=== PATIENT | female | born 1975 | race Caucasian/White ===

== ENCOUNTER 2018-04-01 07:06 | Emergency (ER) | payer BC ==
--- OUTSIDE RECORDS SUMMARY | 2018-04-01 07:10 | XMS REPORT ---
:1975 External Reference #:[id number] Author Organization [facility] Address [address] [place] [address] Phone [phone] Care Team Providers Name Role Phone Arnaldo Bean MD Care Team Information Clam Shucker Unavailable Arnaldo Bean MD Primary Care Physician Unavailable Payers Type Date Identification Numbers Payment Provider Subscriber Commercial Effective: Policy Number: BC/BS Of ELA Radha Colon 2013 [id number] Group Number: [id number] [address] [id number] PayID: [id number] [place] [address] Problems Date Description Provider Status Onset: 08/04/2013 Obesity Darek Palacios M.D. Active Onset: 08/04/2013 FH: Skin disease Darek Palacios M.D. Active Onset: 11/15/2013 Benign essential hypertension Darek Palacios M.D. Active Onset: 10/22/2011 Acute upper respiratory infection Darek Palacios M.D. Resolved Resolved: 04/24/2016 Family History Date Family Member(s) Problem(s) Comments Father Hypercholesterolemia Father Hypertension Father Diabetes Mellitus, II Father Prostate Cancer Mother Hypercholesterolemia Mother Congentital Heart Defect Mother Hypertension First Brother Skin Cancer Melanoma First Sister Soft Tissue Sarcoma Social History Type Date Description Comments General was at [facility] Cigarette Use Current Cigarette Smoker ETOH Use Social Alcohol Smoking Patient is a current smoker, 2 per day, plus e-cig smokes every day Exercise Type/Frequency Exercises regularly Current Allergies, Adverse Reactions, Alerts Date Description Reaction Status Severity Comments 12/26/2008 Sulfa redness/itchiness on face active Medications Medication Date Status Form Strength Qnty SIG Indications Ordering Provider Naproxen 03/05/ Active Tablets 500mg 60tabs 1 by mouth N94.3 Kyara 2017 twice a Leonardo, day with [employer]IST[employer] food No Active 02/18/ Hx Unknown Medications 2017 - 2017 Aviane 11/19/ Hx Tablets 0.1-20mg-m 90tabs 1 by mouth Z30.9 Hortensia 2017 - cg every day Carmel, 02/18/ M.DSera 2017 No Active 06/10/ Hx Unknown Medications 2013 - 2016 Losartan 11/15/ Hx Tablets 25mg 30tabs 1 po qd 401.1 Darek Martino Potassium 2013 - Angelita Palacios 2013 No Active 03/05/ Hx Unknown Medications 2012 - 2013 Augmentin 10/22/ Hx Tablets 500-125mg 20tabs one tab po 465.9 Darek Martino 2011 - bid for Angelita Palacios 03/05/ days 2012 Loratadine-D 10/22/ Hx Tablets 10-240mg 10tabs 1 po qd 465.9 Darek Martino 24HR 2011 - ER 24HR Angelita Palacios 2012 Augmentin 05/10/ Hx Tablets 500-125mg 20tabs 1 po bid x 461.9 Valarie 2010 - 10 days Lilia, 10/22/ Afnp-C 2011 Cipro 05/22/ Hx Tablets 250mg 6tabs 1 po bid 791.9 Darek Martino 2008 - Angelita Palacios 2010 Chantix 04/12/ Hx starter 305.1 Darek Martino Starter Pack 2008 - pack as Angelita Palacios 2010 then two refills on regular dose Chantix 12/26/ Hx Misc 60unit one po bid 305.1 Darek Martino 2008 - s Angelita Palacios 2010 Immunizations CPT Code Status Date Vaccine Lot # [id number] Given 08/04/2013 Tdap Tetanus, W Pertussis [id number] Given 04/12/2009 Meningococcal Conjugate Vaccine,Serogroups For [id number] Intramuscular Use Vital Signs Date Vital Result Comment 03/05/2018 BP Systolic 152 mmHg BP Diastolic 88 mmHg Heart Rate 90 /min Body Temperature 97.9 F Height 61.5 inches 5'1.50" Weight 215.00 lb BMI (Body Mass Index) 40.0 kg/m2 02/18/2018 BP Systolic 150 mmHg BP Diastolic 90 mmHg Heart Rate 76 /min Body Temperature 99.0 F Respiratory Rate 16 /min Height 61.5 inches 5'1.50" Weight 213.00 lb BMI (Body Mass Index) 39.6 kg/m2 11/19/2016 BP Systolic 120 mmHg BP Diastolic 70 mmHg Heart Rate 96 /min Body Temperature 98.1 F Respiratory Rate 18 /min Height 61.5 inches 5'1.50" Weight 211.00 lb BMI (Body Mass Index) 39.2 kg/m2 04/24/2016 BP Systolic 136 mmHg BP Diastolic 86 mmHg Heart Rate 68 /min Body Temperature 98.2 F Respiratory Rate 16 /min Height 61.5 inches 5'1.50" Weight 203.00 lb BMI (Body Mass Index) 37.7 kg/m2 12/09/2014 BP Systolic 138 mmHg BP Diastolic 84 mmHg Heart Rate 78 /min Body Temperature 97.5 F Respiratory Rate 18 /min Height 62.25 inches 5'2.25" Weight 185.00 lb BMI (Body Mass Index) 33.6 kg/m2 06/10/2014 BP Systolic 102 mmHg BP Diastolic 80 mmHg Heart Rate 72 /min Body Temperature 97.8 F Height 62.25 inches 5'2.25" Weight 177.12 lb BMI (Body Mass Index) 32.1 kg/m2 12/06/2013 BP Systolic 122 mmHg BP Diastolic 80 mmHg Heart Rate 72 /min Body Temperature 98.5 F Respiratory Rate 18 /min Height 62.25 inches 5'2.25" Weight 190.00 lb BMI (Body Mass Index) 34.5 kg/m2 11/15/2013 BP Systolic 150 mmHg BP Diastolic 90 mmHg Heart Rate 76 /min Body Temperature 98.8 F Respiratory Rate 18 /min Height 62.25 inches 5'2.25" Weight 193.00 lb BMI (Body Mass Index) 35.0 kg/m2 08/04/2013 BP Systolic 150 mmHg BP Diastolic 98 mmHg Heart Rate 96 /min Body Temperature 98.5 F Height 62.25 inches 5'2.25" Weight 206.50 lb BMI (Body Mass Index) 37.5 kg/m2 Right Visual Acuity Distance 20/25 -1 Left Visual Acuity Distance 20/25 uncorrected 03/05/2013 BP Systolic 134 mmHg BP Diastolic 82 mmHg Heart Rate 72 /min Body Temperature 98.3 F Height 62.25 inches 5'2.25" Weight 203.00 lb BMI (Body Mass Index) 36.8 kg/m2 10/22/2011 BP Systolic 144 mmHg BP Diastolic 90 mmHg Heart Rate 84 /min Body Temperature 99.0 F Height 62.25 inches 5'2.25" Weight 187.00 lb BMI (Body Mass Index) 33.9 kg/m2 05/10/2011 BP Systolic 122 mmHg BP Diastolic 80 mmHg Heart Rate 62 /min Body Temperature 98.1 F Height 62.25 inches 5'2.25" Weight 181.00 lb BMI (Body Mass Index) 32.8 kg/m2 05/22/2009 BP Systolic 120 mmHg BP Diastolic 80 mmHg Heart Rate 88 /min Body Temperature 97.6 F Height 62.25 inches 5'2.25" Weight 191.00 lb BMI (Body Mass Index) 34.7 kg/m2 04/12/2009 BP Systolic 158 mmHg BP Diastolic 96 mmHg Heart Rate 84 /min Body Temperature 98.3 F Height 62.25 inches 5'2.25" Weight 189.00 lb BMI (Body Mass Index) 34.3 kg/m2 12/26/2008 BP Systolic 148 mmHg BP Diastolic 100 mmHg Heart Rate 68 /min Body Temperature 98.9 F Respiratory Rate 18 /min Height 62.25 inches 5'2.25" Weight 185.00 lb BMI (Body Mass Index) 33.6 kg/m2 Results Test Date Test Result H/L Range Note CBC Electronic a 02/18/2018 WBC 10.7 x10^3/UL High 4.0-10.0 RBC 4.37 x10^6/UL 3.93-6.00 HGB 13.9 g/dL 12.0-17.0 HCT 40 % 35-50 MCV 92.4 fL 80.0-95.0 MCH 31.8 pg 25.6-32.2 MCHC 34.4 g/dL 32.2-36.0 RDW-CV 12.8 % 11.6-14.4 PLT 241 x10^3/UL 163-400 MPV 10.6 fL 9.4-12.4 John# 6.02 x10^3/UL 1.56-6.13 Lymph# 3.56 x10^3/UL 1.18-3.74 [place]# 0.80 x10^3/UL 0.24-0.82 Eos # 0.3 x10^3/UL 0.0-0.5 Baso # 0.07 x10^3/UL 0.01-0.08 John% 56.1 % 34.0-70.0 Lymph % 33.2 % 20.0-52.0 [place]% 7.5 % 5.0-12.0 Eos% 2.3 % 0.7-7.0 Baso% 0.7 % 0.1-1.2 Comprehensive Metabolic Prof 02/18/2018 Sodium 138 mEq/L 134-149 Potassium 4.0 mEq/L 3.6-5.5 Chloride 108 mEq/L 94-112 Carbon Dioxide 22 mEq/L 21-32 Glucose 90 mg/dL 70-105 BUN 13 mg/dL 6-26 Creatinine 1.0 mg/dL 0.6-1.4 BUN/Creat Ratio 13.0 CALC 8.0-36.0 Calcium 9.4 mg/dL 8.6-10.2 Total Protein 7.0 g/dL 6.4-8.3 Albumin 4.2 g/dL 3.8-5.5 Globulin 2.8 g/dL 2.0-4.8 A/G Ratio 1.5 CALC 0.6-2.3 Alk. Phosphatase 70 U/L 30-110 Alt (SGPT) 18 U/L 7-35 Ast (Sgot) 12 U/L 5-34 Total Bilirubin 0.5 mg/dL 0.2-1.3 GFR Non- >60 ml/min/1.73m^ >=60 GFR >60 ml/min/1.73m^ >=60 Laboratory test finding 02/18/2018 Magnesium, Serum 2.1 mEq/L 1.2-2.1 TSH 2.55 mIU/L 0.50-6.00 Ua - Non Micro (Fma) 02/18/2018 Appearance clear Color yellow Glucose, Urine (Fma/CMC/CTX) neg Bilirubin neg Ketones neg SP Grav 1.015 Blood neg PH 6.0 Protein neg Urobil 0.2 Nitrite neg Leukocytes (Fma/CMC/Centrex) neg Comprehensive Metabolic Prof 04/24/2016 Sodium 136 mEq/L 134-149 Potassium 4.8 mEq/L 3.6-5.5 Chloride 102 mEq/L 94-112 Carbon Dioxide 26 mEq/L 21-32 Glucose 98 mg/dL 70-105 BUN 11 mg/dL 6-26 Creatinine 0.9 mg/dL 0.6-1.4 BUN/Creat Ratio 12.2 CALC 8.0-36.0 Calcium 9.6 mg/dL 8.6-10.2 Total Protein 6.9 g/dL 6.4-8.3 Albumin 4.2 g/dL 3.8-5.5 Globulin 2.7 g/dL 2.0-4.8 A/G Ratio 1.6 CALC 0.6-2.3 Alk. Phosphatase 61 U/L 30-110 Alt (SGPT) 44 U/L High 7-35 1 Ast (Sgot) 30 U/L 5-34 Total Bilirubin 0.5 mg/dL 0.2-1.3 GFR Non- >60 ml/min/1.73m^ >=60 GFR >60 ml/min/1.73m^ >=60 Lipid Profile 04/24/2016 Cholesterol 173 mg/dL 120-200 Triglycerides 149 mg/dL 30-200 HDL Cholesterol 52 mg/dL 30-85 LDL (Calculated) 91 CALC 0-129 VLDL Cholesterol 30 mg/dL 0-50 HDL Risk Factor 3.3 CALC 0.0-4.4 Laboratory test finding 04/24/2016 TSH 2.80 mIU/L 0.50-6.00 Complete Blood Count 04/24/2016 WBC 8.7 x10^3/UL 3.6-9.6 RBC 4.36 x10^6/UL 3.90-5.70 HGB 14.3 g/dL 12.1-17.2 HCT 42 % 36-50 MCV 96.0 fL 82.2-97.4 MCH 32.8 pg 27.6-33.3 MCHC 34.0 g/dL 33.0-35.5 RDW 13.2 % 11.6-13.7 PLT 245 x10^3/UL 150-400 MPV 7.9 fL 7.4-10.4 Gran # 5.4 x10^3/UL 1.5-7.2 Lymph# 2.8 x10^3/UL 0.7-4.9 [place]# 0.5 x10^3/UL 0.1-0.9 Gran % 60.4 % 42.2-75.2 Lymph % 33.3 % 20.5-51.1 [place]% 6.3 % 1.7-9.3 Comprehensive Metabolic Prof 12/09/2014 Sodium 138 mEq/L 134-149 Potassium 4.2 mEq/L 3.6-5.5 Chloride 102 mEq/L 94-112 Carbon Dioxide 27 mEq/L 21-32 Glucose 105 mg/dL 70-105 BUN 16 mg/dL 6-26 Creatinine 0.9 mg/dL 0.6-1.4 BUN/Creat Ratio 17.8 CALC 8.0-36.0 Calcium 9.5 mg/dL 8.6-10.2 Total Protein 7.1 g/dL 6.4-8.3 Albumin 4.4 g/dL 3.8-5.5 Globulin 2.7 g/dL 2.0-4.8 A/G Ratio 1.6 CALC 0.6-2.3 Alk. Phosphatase 54 U/L 30-110 Alt (SGPT) 15 U/L 7-35 Ast (Sgot) 9 U/L 5-34 Total Bilirubin 0.3 mg/dL 0.2-1.3 Lipid Profile 12/09/2014 Cholesterol 176 mg/dL 120-200 Triglycerides 97 mg/dL 30-200 HDL Cholesterol 63 mg/dL 30-85 LDL (Calculated) 94 CALC 0-129 VLDL Cholesterol 19 mg/dL 0-50 HDL Risk Factor 2.8 CALC 0.0-4.4 Basic Metabolic Profile 12/06/2013 Sodium 138 mEq/L 134-149 Potassium 4.7 mEq/L 3.6-5.5 Chloride 98 mEq/L 94-112 Carbon Dioxide 24 mEq/L 21-32 Glucose 89 mg/dL 70-105 BUN 13 mg/dL 6-26 Creatinine 1.0 mg/dL 0.6-1.4 BUN/Creat Ratio 13.0 CALC 8.0-36.0 Calcium 10.0 mg/dL 8.6-10.2 Human Papilloma 08/05/2013 Human Papillomavirus Source See Comment 2 Human Papillomavirus High Risk Negative Negative 3 Laboratory test finding 08/04/2013 Cytology RUN DATE: 08/05/ <SEE NOTE> 4 CBC Electronic (Fma) 08/04/2013 WBC 8.5 3.6-9.6 RBC 4.36 3.90-5.70 Hemoglobin (Fma/CMC/CTX) 13.8 g/dL 12.1 - 17.2 Hematocrit (Fma/CMC/CTX) 41.7 % 36.1 - 50.3 Platelets 290 10^3/ul 150-400 Lymph% 31.1 20.5-51.1 Mixed% 4.7 Neutrophils % 64.2 Mean Corpuscular Vol 96 82.2-97.4 Mean Corpuscular Hemoglobin 31.7 27.6-33.3 Mean Corpuscular Hemo Concen 33.2 32.0-36.0 RDW 12.3 11.6-13.7 Mean Platelet Volume 7.1 6.5-11.0 Ua - Micro (Fma) 08/04/2013 Appearance CLEAR Color YELLOW Glucose NEG Bilirubin NEG Ketones NEG SP Grav 1.020 Blood MOD PH 5.0 Protein NEG Urobil 0.2 Nitrite NEG Leukocytes (Fma/CMC/Centrex) NEG Hyaline - /Lpf Granular - /Lpf WBC (Fma,Centrex) 0-2 RBC 1-2 Mucus - /Lpf Epith OCC /Lpf Bacteria RARE /Hpf Amorphous - /Lpf Crystals, Fluid (Fma/CMC/CTX) - Z#Comments - Lipid Profile 08/04/2013 Cholesterol 161 mg/dL 120-200 HDL 54 mg/dL 30-85 Triglycerides 98 mg/dL 30-200 HDL Risk Factor 3.0 CALC 0.0-4.4 LDL (Calculated) 87 CALC 0-129 VLDL (Calculated) 20 mg/dL 0-50 Comprehensive Metabolic Prof 08/04/2013 Albumin 4.8 g/dL 3.8-5.5 Alk. Phos. 72 U/L 30-110 Alt (SGPT) 16 U/L 7-35 Ast (Sgot) 15 U/L 5-34 BUN 15 mg/dL 6-26 Calcium 9.3 mg/dL 8.6-10.2 Chloride 102 mEq/L 94-112 Creatinine 1.1 mg/dL 0.6-1.4 Carbon Dioxide 24 mEq/L 21-32 Glucose 105 mg/dL 70-105 Sodium 137 mEq/L 134-149 Total Bilirubin 0.3 mg/dL 0.2-1.3 Total Protein 7.3 g/dL 6.3-8.1 Potassium 4.3 mEq/L 3.6-5.5 Globulin 2.5 g/dL 2.0-4.8 A/G Ratio 1.9 Calc 0.6-2.3 BUN/Creat Ratio 13.4 Calc 8.0-36.0 Laboratory test finding 08/04/2013 TSH 2.03 mIU/L 0.50-6.00 Laboratory test finding 06/19/2009 Urine Culture No growth. Lipid Profile 05/22/2009 Cholesterol 174 mg/dL 120-200 5 HDL 51 mg/dL 30-85 5 Triglycerides 219 mg/dL High 30-200 5 HDL Risk Factor 3.4 CALC Low 4.2-7.0 5 LDL (Calculated) 79 CALC 0-129 5 VLDL (Calculated) 44 mg/dL 0-50 5 Comprehensive Metabolic Prof 05/22/2009 Albumin 4.4 g/dL 3.8-5.5 5 Alk. Phos. 77 U/L 30-110 5 Alt (SGPT) 19 U/L 7-35 5 Ast (Sgot) 16 U/L 5-34 5 BUN 12 mg/dL 6-26 5 Calcium 9.4 mg/dL 8.6-10.2 5 Chloride 99 mEq/L 94-112 5 Creatinine 1.0 mg/dL 0.6-1.4 5 Carbon Dioxide 23 mEq/L 21-32 5 Glucose 98 mg/dL 70-105 5 Sodium 142 mEq/L 134-149 5 Total Bilirubin 0.4 mg/dL 0.2-1.3 5 Total Protein 7.2 g/dL 6.3-8.1 5 Potassium 4.9 mEq/L 3.6-5.5 5 Globulin 2.8 g/dL 2.0-4.8 5 A/G Ratio 1.6 Calc 0.6-2.2 5 BUN/Creat Ratio 12.9 Calc 8.0-36.0 5 Complete Blood Count 05/22/2009 WBC 11.4 x10^3/uL High 3.6-9.6 5 Gran# 7.5 x10^3/uL High 1.5-7.2 5 Gran% 66.1 % 42.2-75.2 5 HCT 42 % 36-50 5 HGB 14.4 g/dL 12.1-17.2 5 Lymph# 3.5 x10^3/uL 0.7-4.9 5 Lymph% 30.4 % 20.5-51.1 5 MCH 32.3 pg 27.6-33.3 5 MCV 93.2 fL 82.2-97.4 5 MCHC 34.7 g/dL 33.0-35.5 5 Mo# 0.4 x10^3/uL 0.1-0.9 5 Mo% 3.5 % 1.7-9.3 5 MPV 8.9 fL 7.4-10.4 5 PLT 256 x10^3/uL 150-400 5 RBC 4.46 x10^6/uL 3.90-5.70 5 RDW 12.3 % 11.6-13.7 5 Ua - Micro (Fma) 05/22/2009 Appearance CLEAR Color YELLOW Glucose, Urine (Fma/CMC/CTX) NEG Bilirubin NEG Ketones NEG SP Grav <=1.005 Blood SMALL PH 6.0 Protein NEG Urobil 0.2 Nitrite NEG Leukocytes (Fma/CMC/Centrex) TRACE Hyaline - /Lpf Granular - /Lpf WBC (Fma,Centrex) 8-10 RBC 4-6 Mucus (Fma/CBC/Centrex) - /Lpf Epith RARE /Lpf Bacteria 3+ /Hpf Amorphous (Fma/CMC/Centrex) - /Lpf Crystals, Fluid (Fma/CMC/CTX) - Z#Comments - Mumps/Measles/Rubella 04/12/2009 Mumps Titer Igg AB 2.26 Index 6, 7 Rubella Titer Igg AB 56.9 IU/mL 6, 8 Rubeola Titer Igg AB 2.75 Index 6, 9 1 RESULTS VERIFIED BY REPEAT ANALYSIS 2 RESULT: Ectocervical/Endocervical 3 For types 16, 18, 31, 33, 35, 39, 45, 51, 52, 56, 58, 59 and 68. Test Performed by: [facility] - [address] [address] [place] Driver: Deven Omalley III, M.D. 4 RUN DATE: 08/05/13 [facility] LAB LIVE PAGE 1 RUN TIME: [address] [place], [place] [address] Specimen Inquiry Name: RADHA COLON : [address]: Darek Palacios MD Acct: [id number] Unit: [id number] AGE: 38 Location: [facility] Re08/04/13 SEX: F Status: REG REF SPEC: [id number] JAMAAL: 08/04/13-0954 [facility] DR: Darek Palacios MD REQ: [id number] RECD: 08/04/13 STATUS: SOUT _ ORDERED: IMAGE ANALYSIS, HPV/Thin Prep FINAL DIAGNOSIS Negative for Intraepithelial lesion or Malignancy COMMENTS: Specimen sent to [facility] [email or web address] in [place], [place] on 08/05/13 by [email or web address] at 1210. Results will be reported separately. A. Ectocervical/Endocervical Specimen Adequacy: Satisfactory of evaluation Transformation zone component identified Patient Information: HPV: High risk HPV DNA testing regardless of pap results. Actual Specimen Date: 08/04/13 Last Menstrual Date: 07/08/13 Spec Date if unknown: 2005 Cautery: N IUD: N Lesion, grossly demonstrate: N ?: N Post Menopausal?: N Hysterectomy?: N Previous Abnormal Pap Smears?:N Signed (signature on file) MARIO Estes (ASCP) 08/05/13 8170 This Pap test was evaluated with the assistance of the [employer] DEM[employer] Micro[employer] Test Imaging System. Due to cytologic findings at the tongue carrier microscope, comprehensive manual rescreening by a Server may be required. The Pap Smear is a screening test designed to aid in the detection of premalignant and malignant conditions of the uterine cervix. It is not a diagnostic procedure and should not be used as the sole means of detecting cervical cancer. Both false- positive and false- negative reports do occur. Depending on your risk status, a Pap smear shoudl be obtained and evaluated every 1-3 years. END OF REPORT * ML=Testing performed at Main Lab DEPARTMENT OF PATHOLOGY, [facility] [employer] [place], [place] [address] Keith Rodriguez M.D. Director [facility] Permit #[id number] RUN DATE: 08/05/13 [facility] LAB LIVE PAGE 1 RUN TIME: 6333 [facility] i3 membrane [place], [place] [address] Specimen Inquiry Patient: BLANCARADHA [id number] (Continued) 5 FASTING 6 1 sst 7 < 0.90 Negative 0.91- 1.09 Equivocal >=1.10 Positive 8 <5.0 Negative (No Immunity) 5.0-10.0 Equivocal (Susceptible) >10.0 Positive (Immune) 9 < 0.90 Negative 0.91- 1.09 Equivocal >=1.10 Positive Procedures Date CPT Code Description Status 09/10/2017 Mammogram Completed 09/10/2016 Mammogram Completed 09/07/2015 Mammogram Completed 08/29/2014 Mammogram Completed 08/04/2013 60850 Vision Test- screening test of visual acuity, Completed quantitative, bila Encounters Type Date Location Provider CPT E/M Dx Office Visit 02/18/2018 11:00a [facility] Office Arnaldo Bean M.D. 82849 R03.0 Office Visit 11/19/2016 1:40p [facility] Office Hortensia Harrell M.D. 14406 Z30.9 Office Visit 04/24/2016 10:30a [facility] Office Arnaldo Bean M.D. 07328 Z00.00 Z82.49 Z80.8 Office Visit 12/09/2014 8:00a [facility] Office Brennan Finley M.D. 34383 V70.0 Office Visit 06/10/2014 8:00a [facility] Office Brennan Finley M.D. 16898 401.1 V76.10 Office Visit 12/06/2013 11:10a [facility] Office Darek Palacios M.D. 50348 401.1 Office Visit 11/15/2013 2:40p [facility] Office Darek Palacios M.D. 70419 401.1 Office Visit 08/04/2013 8:10a [facility] Office Darek Palacios M.D. 89332 V70.0 V77.91 V76.10 V76.2 278.00 796.2 V19.4 V06.5 599.72 Office Visit 03/05/2013 11:30a [facility] Office Bridgett Braxton 18389 E906.4 912.4 Office Visit 10/22/2011 10:40a [facility] Office Darek Palacios M.D. 19465 465.9 Office Visit 05/10/2011 10:45a [facility] Office Bridgett Braxton 49399 461.9 Office Visit 05/22/2009 8:10a [facility] Office Darek Palacios M.D. 40695 V70.0 278.02 V77.91 V76.10 V76.2 791.9 Office Visit 04/12/2009 3:20p [facility] Office Darek Palacios M.D. 91025 305.1 278.02 796.9 V05.8 V65.8 Office Visit 12/26/2008 9:10a [facility] Office Darek Palacios M.D. 06881 305.1 278.02 Plan of Care Future Appointment(s):03/19/2018 1:30 pm - Arnaldo Bean M.D. at [facility] Qqaciu1503/05/2018 - Kyara Patterson, FNPR03.0 Elevated blood-pressure reading, w/o diagnosis of htnN94.3 Premenstrual tension syndromeNew Medication:Naproxen 500 mgComments:Good clean living the week prior to period seems to improve our experience of our menses; no promises, but its worth a tryDIET/EXERCISE: You may not be eating quite enough to lose weight: see what happens if you ramp up the VOLUME of food, not the calories---lots of fruit, veg--greens, water based foods--cucumbers, melons, etcIntermittent fasting?Z01.419 Encntr for rn gynecology exam ( general) (routine) w/o abn findingsAllComments:~B_~U_Medication Management~b_~u _ Patient Understands medications he 's taking? Yes No Notapplicable at this visit Are there Barriers to Adherence? Yes No Not applicable at this visit Has the patient been asked about herbal supplements and therapies , and OTC meds? Yes No
[2018-04-01 07:15] VITALS: BP 171/101
--- NOTE | 2018-04-01 07:24 | UC ---
Eye Complaint HPI - HPI Summary HPI Summary: This patient is a 42 year old F presenting to [facility] with a chief complaint of sore throat and nasal congestion for the past 5 days. Yesterday the patient began having bilateral eye erythema and is now concerned for pink eye. The patient rates the pain 0/10 in severity. Symptoms alleviated by nothing, she has tried allergy medication and nyquil. Patient reports sneezing and eye discharge. Patient denies nasal discharge. Pt states she doesnt have seasonal allergies. - History of Current Complaint Chief Complaint: UCEye Stated Complaint: EYE COMPLAINT Time Seen by Provider: 04/01/18 07:10 Hx Obtained From: Patient Onset/Duration: Lasting Days - 5, Still Present Timing: Constant Severity Initially: Mild Severity Currently: Mild Pain Intensity: 0 Pain Scale Used: 0-10 Numeric Location of Injury: Conjunctiva Associated Signs And Symptoms: Positive: Negative - nasal discharge, Drainage ( Clear) - Allergies/Home Medications Allergies/Adverse Reactions: Allergies Allergy/AdvReac Type Severity Reaction Status Date / Time Sulfa (Sulfonamide Allergy Flushing Verified 04/01/18 07:15 Antibiotics) PMH/Surg Hx/FS Hx/Imm Hx GI/ History: Other Other GI/ History: Kidney infections Other History Of: Negative For: Anticoagulant Therapy - Surgical History Surgical History: Yes Surgery Procedure, Year, and Place: tubal - Family History Known Family History: Positive: Hypertension Negative: Respiratory Disease, Seizure Disorder - Social History Alcohol Use: Occasionally Substance Use Type: None Smoking Status (MU): Light Every Day Tobacco Smoker Review of Systems Eyes: Drainage, Eye Redness ENT: Sore Throat, Sinus Congestion, Other - sneezing All Other Systems Reviewed And Are Negative: Yes Physical Exam - Summary Physical Exam Summary: General: well-appearing, no pain distress Skin: warm, color reflects adequate perfusion, dry Head: normal Eyes: EOMI, SHARON, bilateral injected conjunctiva w/ clear drainage ENT: rhinorrhea is clear Neck: supple, nontender Respiratory: CTA, breath sounds present Cardiovascular: RRR Abdomen: soft, nontender Bowel: present Musculoskeletal: normal, strength/ROM intact Neurological: sensory/motor intact, A&O x3 Psychological: affect/mood appropriate Triage Information Reviewed: Yes Vital Signs: Initial Vital Signs Temp 98.1 F 04/01/18 07:10 Pulse 76 04/01/18 07:10 Resp 18 04/01/18 07:10 BP 171/101 04/01/18 07:10 Pulse Ox 99 04/01/18 07:10 Vital Signs Reviewed: Yes Eye Complaint Course/Dx - Course Course Of Treatment: BP noted and advised to follow up with PCP. WILL RX ABX AND ANTIHISTAMINE EYE DROPS. TAKE OTC ANTIHISTAMINE ALSO. F/U PMD; RETURN FOR RECHECK IF WORSE. - Differential Dx/Diagnosis Provider Diagnoses: BILATERAL CONJUNCTIVITIS. Elevated BP without dx of HTN Discharge - Sign-Out/Discharge Documenting (check all that apply): Patient Departure - Discharge Plan Condition: Stable Disposition: HOME Prescriptions: Ketotifen Fumarate [Allergy Eye Drops] 1 drop BOTH EYES Q8H PRN #1 bottle PRN Reason: Allergy Symptoms Tobramycin 0.3% OPHTH.MEGAN* 1 drop BOTH EYES Q4H #1 btl Patient Education Materials: Conjunctivitis (ED) Referrals: Arnaldo Bean MD [Primary Care Provider] - Additional Instructions: Your blood pressure was elevated during todays visit; please follow up with your primary care provider within a week for further evaluation. FOLLOW UP WITH YOUR DOCTOR IF NOT COMPLETELY IMPROVED. GET RECHECKED FOR ANY WORSENING OF YOUR CONDITION OR QUESTIONS OR CONCERNS. - Billing Disposition and Condition Condition: STABLE Disposition: Home
== END 2018-04-01 07:36 | disposition home or self-care (01) ==
LOC: UCEAST 07:06
DX: H10.9 Unspecified conjunctivitis (principal); J02.9 Acute pharyngitis, unspecified; R09.81 Nasal congestion; R03.0 Elevated blood-pressure reading, without diagnosis of hypertension; F17.200 Nicotine dependence, unspecified, uncomplicated; Z88.2 Allergy status to sulfonamides
CPT/HCPCS: 99212; G0463

== ENCOUNTER 2018-04-28 11:37 | Emergency (ER) | payer BC ==
--- NOTE | 2018-04-28 13:23 | UC ---
Throat Pain/Nasal Royal HPI - HPI Summary HPI Summary: 42 yo female presents with sore throat and body aches since yesterday. She tells me that yesterday morning she woke up with a mild sore throat. Got worse throughout the day and developed fatigue and body aches - but still went to the gym. Today the fatigue and body aches have resolved. Has not taken anything OTC. Denies fever, chills, cough, SOB, chest pain, or rash. - History of Current Complaint Stated Complaint: SORE THROAT Time Seen by Provider: 04/28/18 13:23 Hx Obtained From: Patient Onset/Duration: Sudden Onset Severity: Moderate Pain Intensity: 7 Pain Scale Used: 0-10 Numeric - Allergies/Home Medications Allergies/Adverse Reactions: Allergies Allergy/AdvReac Type Severity Reaction Status Date / Time Sulfa (Sulfonamide Allergy Flushing Verified 04/01/18 07:15 Antibiotics) Home Medications: Home Medications Naproxen Sodium [Aleve] 220 mg PO Q12H PRN 04/28/18 [History Confirmed 04/28/18] PMH/Surg Hx/FS Hx/Imm Hx - Additional Past Medical History Additional PMH: None Previously Healthy: Yes Other History Of: Negative For: Anticoagulant Therapy - Surgical History Surgical History: Yes Surgery Procedure, Year, and Place: tubal - Family History Known Family History: Positive: Hypertension Negative: Respiratory Disease, Seizure Disorder - Social History Occupation: Employed Full-time Lives: With Family Alcohol Use: Occasionally Substance Use Type: None Smoking Status (MU): Light Every Day Tobacco Smoker Review of Systems Constitutional: Negative Skin: Negative Eyes: Negative ENT: Sore Throat Respiratory: Negative Cardiovascular: Negative Gastrointestinal: Negative Neurovascular: Negative Neurological: Negative Psychological: Negative All Other Systems Reviewed And Are Negative: Yes Physical Exam - Summary Physical Exam Summary: GENERAL: NAD. WDWN. No pain distress. SKIN: No rashes, sores, lesions, or open wounds. HEENT: Head: AT/NC Eyes: EOM intact. Conjunctiva clear without inflammation or discharge. Ears: Hearing grossly normal. TMs intact, no bulging, erythema, or edema. Nose: Nasal mucosa pink and moist. NTTP maxillary and frontal sinus. Throat: Posterior oropharynx without exudates, erythema, or tonsillar enlargement. Uvula midline. NECK: Supple. Nontender. No lymphadenopathy. CHEST: CTAB. No r/r/w. No accessory muscle use. Breathing comfortably and in no distress. CV: RRR. Without m/r/g. Pulses intact. Brisk cap refill. NEURO: Alert. CN II-XII grossly intact. PSYCH: Age appropriate behavior. Triage Information Reviewed: Yes Vital Signs: Vital Signs: Temp Pulse Resp BP Pulse Ox 98.5 F 90 18 172/97 98 04/28/18 13:21 04/28/18 13:21 04/28/18 13:21 04/28/18 13:21 04/28/18 13:21 Laboratory Tests 04/28/18 13:29 Group A Strep Rapid Negative Vital Signs Reviewed: Yes Throat Pain/Nasal Course/Dx - Course Course Of Treatment: Suspect viral pharyngitis. Advised to continue fluids and take tylenol/ibuprofen for any discomfort. - Differential Dx/Diagnosis Provider Diagnoses: Viral pharyngitis Discharge - Sign-Out/Discharge Documenting (check all that apply): Patient Departure - Discharge Plan Condition: Stable Disposition: HOME Patient Education Materials: Pharyngitis (ED) Referrals: Arnaldo Bean MD [Primary Care Provider] - Additional Instructions: If you develop a fever, shortness of breath, chest pain, new or worsening symptoms - please call your PCP or go to the ED. Your blood pressure was high at todays visit. Please see your primary provider within 4 weeks for recheck and re-evaluation. - Billing Disposition and Condition Condition: STABLE Disposition: Home
[2018-04-28 13:26] VITALS: BP 172/97
== END 2018-04-28 14:15 | disposition home or self-care (01) ==
LOC: UCEAST 11:37
DX: J02.8 Acute pharyngitis due to other specified organisms (principal); Z88.2 Allergy status to sulfonamides; F17.200 Nicotine dependence, unspecified, uncomplicated
CPT/HCPCS: 87651; 99211; G0463